=== PATIENT | female | born 1990 | race Caucasian/White ===

== ENCOUNTER 2020-05-19 11:58 | Inpatient (IN) ==
[2020-05-19] MEDS ORDERED: Azithromycin 500 MG in 0.9 % Sodium Chloride 250 ML IVPB ONE (12:21)
[2020-05-19] MEDS ORDERED: Lidocaine 1% 20 ML MDV ID PRN (12:21)
[2020-05-19] MEDS ORDERED: Naloxone 0.4 MG/ML INJ IVP PRN (12:21)
[2020-05-19] MEDS ORDERED: Famotidine 20 MG/2 ML VIAL IVP PRN (12:21)
[2020-05-19] MEDS ORDERED: Ondansetron 4 MG/2 ML VIAL IVP PRN (12:21)
[2020-05-19] MEDS ORDERED: Metoclopramide 10 MG/2 ML VIAL IVP PRN (12:21)
[2020-05-19] MEDS ORDERED: Penicillin G Potassium 5,000,000 UNIT in 0.9 % Sodium Chloride Mini Bag 100 ML IVPB ONE (12:54)
[2020-05-19] MEDS ORDERED: Acetaminophen 325 MG TABLET PO PRN (12:55)
[2020-05-19] MEDS ORDERED: EPHEDrine 50 MG/ML VIAL IVP PRN (13:25)
[2020-05-19] MEDS: Ringers Solution, Lactated 1,000 ML IVC SCH ×2 (13:55→17:10)
[2020-05-19 13:59] LABS: Basophils % 0.2 %; Eosinophils # 0.1 K/mcL (0.0-0.6); Eosinophils % 0.7 %; Hematocrit 39.1 % (35.3-44.9); Hemoglobin 12.7 g/dL (11.5-15.4); Immature Granulocytes % 0.6 % (0-4); Lymphocytes # 1.3 K/mcL (0.6-4.6); Lymphocytes % 11.1 %; Mean Corpuscular HGB Conc 32.5 g/dL (31.6-35.5); Mean Corpuscular Hemoglobin 30.9 pg (28.0-33.3); Mean Corpuscular Volume 95.1 fL (83.0-100.0); Mean Platelet Volume 9.9 fL (9.4-12.4); Monocytes # 0.6 K/mcL (0.0-1.3); Monocytes % 4.9 %; Neutrophils # 9.9 K/mcL (1.6-8.9); Platelet Count 309 K/mcL (140-400); Red Blood Count 4.11 M/mcL (3.82-4.97); Red Cell Distribution Width 14.1 % (11.5-14.5); Segmented Neutrophils % 82.5 %; White Blood Count 11.9 K/mcL (4.3-11.1)
[2020-05-19 14:10] LABS: Amphetamine Screen,Urine Negative ng/mL (Cutoff=1000); Barbiturate Screen,Urine Negative ng/mL (Cutoff=200); Benzodiazepines Screen,Urine Negative ng/mL (Cutoff=200); Cannabinoid Screen,Urine Negative ng/mL (Cutoff = 50); Cocaine Screen,Urine Negative ng/mL (Cutoff= 300); Opiate Screen,Urine Negative ng/mL (Cutoff=300); Phencyclidine Screen,Urine Negative ng/mL (Cutoff=25)
[2020-05-19 14:14] LABS: Influenza A PCR Negative (Negative); Influenza B PCR Negative (Negative); Resp. Syncytial Virus PCR Negative (Negative)
[2020-05-19 14:22] LABS: SARS-CoV-2 by PCR (In House) Negative (Negative)
[2020-05-19] MEDS: Epidural Premix (fent/bupiv) 110 ML EP SCH ×2 (14:35→19:51)
[2020-05-19 14:48] LABS: Rubella IgG Antibody POSITIVE (POSITIVE); Varicella Zoster IgG Antibody Positive
[2020-05-19 15:05] LABS: Hepatitis B Surface Antigen Nonreactive (Nonreactive)
[2020-05-19 15:34] LABS: HIV-1&2 Antibody & p24 Ag Nonreactive (Nonreactive)
[2020-05-19] MEDS ORDERED: Oxytocin 20 units/ LR 1000 mL 20 UNIT/1,000 ML BAG IVC SCH (16:30)
[2020-05-19] MEDS ORDERED: Penicillin G Potassium 2,500,000 UNIT/105 ML MLS IVPB SCH (17:00)
[2020-05-19] MEDS ORDERED: Ropivacaine/PF 0.2% 20 ML VIAL ONE (20:51)
[2020-05-19] MEDS ORDERED: *HR* Ropivacaine/PF 0.5% 20 ML VIAL ONE (20:51)
[2020-05-19] MEDS ORDERED: Sodium Bicarbonate 50 MEQ/50 ML VIAL ONE (22:27)
[2020-05-19] MEDS ORDERED: *HR* FentaNYL (PF) 100 MCG/2 ML VIAL ONE ×2 (22:28→22:47)
[2020-05-19] MEDS ORDERED: Lidocaine/EPI 1:200k 2% PF 20 ML VIAL ONE (22:28)
[2020-05-19] MEDS ORDERED: Ringers Solution, Lactated 1,000 ML ONE ×2 (22:31→23:05)
[2020-05-19] MEDS ORDERED: *HR* Oxytocin 10 UNIT/ML VIAL IM ONE (22:45)
[2020-05-19] MEDS ORDERED: Ondansetron 4 MG/2 ML VIAL ONE ×2 (22:49→23:05)
[2020-05-19] MEDS ORDERED: Dexamethasone 4 MG/ML VIAL ONE (22:49)
[2020-05-19] MEDS ORDERED: *HR* Magnesium Sulfate 1 GM/2 ML VIAL ONE (22:50)
[2020-05-19] MEDS ORDERED: *HR* FentaNYL (PF) 250 MCG/5 ML VIAL ONE (22:51)
[2020-05-19] MEDS ORDERED: *HR* Midazolam HCl 2 MG/2 ML VIAL ONE (22:52)
[2020-05-19] MEDS ORDERED: Ketamine *HR* 500 MG/10 ML MDV ONE (22:53)
[2020-05-19] MEDS ORDERED: *HR* Morphine Sulfate/PF 10 MG/10 ML AMPUL ONE (22:57)
[2020-05-19] MEDS ORDERED: Ketorolac 30 MG/ML VIAL ONE (23:08)
[2020-05-19] MEDS ORDERED: Lidocaine -MPF 2% 5 ML VIAL ONE (23:45)
[2020-05-20] MEDS ORDERED: *HR* Oxytocin 10 UNIT/ML VIAL IM ONE (00:01)
[2020-05-20] MEDS ORDERED: Ondansetron 4 MG/2 ML VIAL IVP PRN (02:16)
[2020-05-20] MEDS ORDERED: Oxytocin 20 units/ LR 1000 mL 20 UNIT/1,000 ML BAG IVC SCH (02:16)
[2020-05-20] MEDS ORDERED: Simethicone 80 MG TAB.CHEW PO PRN (02:16)
[2020-05-20] MEDS ORDERED: Ringers Solution, Lactated 1,000 ML IVC SCH (02:16)
[2020-05-20] MEDS ORDERED: Rho Immune Globulin 1,500 UNIT SYRINGE IM ONE (02:16)
[2020-05-20] MEDS ORDERED: Sennosides 8.6 MG TABLET PO PRN (02:16)
[2020-05-20] MEDS ORDERED: Metoclopramide 10 MG/2 ML VIAL IVP PRN (02:16)
[2020-05-20] MEDS: Ibuprofen 600 MG TABLET PO PRN ×2 (04:28→13:03)
[2020-05-20 07:30] LABS: Basophils % 0.1 %; Hematocrit 31.7 % (35.3-44.9); Immature Granulocytes % 0.5 % (0-4); Lymphocytes # 1.3 K/mcL (0.6-4.6); Mean Corpuscular HGB Conc 33.8 g/dL (31.6-35.5); Mean Corpuscular Hemoglobin 31.8 pg (28.0-33.3); Mean Corpuscular Volume 94.1 fL (83.0-100.0); Mean Platelet Volume 10.6 fL (9.4-12.4); Monocytes # 0.7 K/mcL (0.0-1.3); Monocytes % 3.5 %; Neutrophils # 18.7 K/mcL (1.6-8.9); Platelet Count 253 K/mcL (140-400); Red Blood Count 3.37 M/mcL (3.82-4.97); Red Cell Distribution Width 14.4 % (11.5-14.5); Segmented Neutrophils % 89.9 %
[2020-05-20 07:34] LABS: Hemoglobin 10.7 g/dL (11.5-15.4); White Blood Count 20.8 K/mcL (4.3-11.1)
[2020-05-20] MEDS ORDERED: NON-FORMULARY MEDICATION 1 EACH EACH (Prenat 115/Iron Fum/Folic/Dss [Prenatal 19 Tablet] 1 PO SCH (09:00)
[2020-05-20] MEDS ORDERED: Prenatal Vit/FA 1 EACH TABLET PO SCH (09:00)
[2020-05-20] MEDS ORDERED: *HR* Buprenorphine HCl 8 MG TAB.SUBL SL SCH (09:00)
[2020-05-20] MEDS ORDERED: metroNIDAZOLE 500 MG TABLET PO SCH (09:00)
[2020-05-20] MEDS ORDERED: buprenorphine HCL 8 MG, buprenorphine HCL 6 MG SL SCH (09:15)
[2020-05-20] MEDS: cephALEXin 500 MG CAPSULE PO SCH ×2 (09:21→16:19)
[2020-05-20 09:28] VITALS: BP 109/67
== END 2020-05-20 15:50 | disposition home or self-care (01) | DRG 540 ==
LOC: 1NENULAB → OBSVTOIN 11:58 → 1NENUOBS 05-20 02:16
PROVIDERS: ADMIT Student in an Organized Health Care Education/Training Program; ATTEND Student in an Organized Health Care Education/Training Program